=== PATIENT | male | born 1955 | race Caucasian/White ===

== ENCOUNTER → 2017-04-29 | Outpatient (CLI) | payer BC ==
[~2017-04-29] MED LIST: HYDR-5688 PO
--- NOTE | 2017-04-29 12:35 | DIAGNOSTIC IMAGING REPORT ---
(CHEST) THORAX WITHOUT CT DOSE: 439.24 mGycm HISTORY: Pulmonary nodules R91.8 Pulmonary [id number] TECHNIQUE: Multiaxial CT images of the chest were performed without contrast. A dose lowering technique was utilized adhering to the principles of ALARA. COMPARISON: 11/17/2015 FINDINGS: Lungs remain clear. The small nodule previous described is nonprogressive. There are unchanged in size number and or configuration. There is no new nodularity. Within limitations of an unenhanced scan there is no significant mediastinal or hilar elijah pathology. There is minimal atherosclerotic change thoracic aorta. Limited evaluation the upper abdomen is unremarkable. IMPRESSION: 1. Stable exam including unchanging nodularity throughout both hemithoraces. 2. No evidence for new interval or progressive process or nodule. 3. Despite the extremely low suspicion of significant pathology, a follow-up CT chest in approximately 2 years is felt to be appropriate. The above report was generated using voice recognition software. It may contain grammatical, syntax or spelling errors. Electronically signed by: Jaswinder Chapman M.D. 04/29/2017 12:34 PM Dictated Date/Time: 04/29/2017 12:31 PM
== END | disposition home or self-care (01) ==
LOC: C.CTS 12:10
PROVIDERS: ATTEND Family Medicine
DX: R91.8 Other nonspecific abnormal finding of lung field (principal)

== ENCOUNTER → 2017-07-12 | Outpatient (CLI) | payer OTHER | END | disposition home or self-care (01) | LOC: C.LAB1850 14:01 | PROVIDERS: ATTEND Family Medicine | DX: Z00.00 Encounter for general adult medical examination without abnormal findings (principal); Z11.3 Encounter for screening for infections with a predominantly sexual mode of transmission ==

== ENCOUNTER → 2017-07-21 | Outpatient (CLI) | payer OTHER ==
[2017-07-21 15:59] LABS: HEP C IGG 13 YRS+OLDER_RFLX NEG (NEG)
[2017-07-23 14:36] LABS: HEPATITIS A IGM TC 51813E NON-REACTIVE (NON-REACTIVE); HEPATITIS B CORE IGM TC51854R NON-REACTIVE (NON-REACTIVE)
== END | disposition home or self-care (01) ==
LOC: C.LAB1850 13:03
PROVIDERS: ATTEND Family Medicine
DX: Z11.3 Encounter for screening for infections with a predominantly sexual mode of transmission (principal)